=== PATIENT | male | born 1955 | race Caucasian/White ===

== ENCOUNTER 2023-03-13 19:12 | Emergency (ER) | payer MEDICARE, SELFPAY ==
[2023-03-13 19:13] VITALS: BP 146/74; PULSE 52; RESP 16; TEMP 36.6; O2SAT 100; BMI 21.0
--- NOTE | 2023-03-13 19:18 | EKG12_ITS ---
Test Reason : CP Blood Pressure : / mmHG Vent. Rate : 054 BPM Atrial Rate : 054 BPM P-R Int : 222 ms QRS Dur : 114 ms QT Int : 460 ms P-R-T Axes : 079 095 061 degrees QTc Int : 436 ms Sinus bradycardia with 1st degree A-V block Rightward axis Borderline ECG Confirmed by SANTOS DANIEL ([id number]), industrial editor SAMANTHA BROWN ([id number]) on 03/16/2023 7:34:49 AM Referred By: ESE Confirmed By:SANTOS DANIEL
[2023-03-13 19:42] LABS: Absolute Lymphocyte Count 2.39 X10^3/uL (0.83-4.51); Absolute Neutrophil Count 5.6 X10^3/uL (2.0-7.7); Basophil# 0.07 X10^3/uL; Basophil% 0.8 % (0-1); Eosinophil# 0.42 X10^3/uL; Eosinophils% 4.6 % (0-5); Hematocrit 43.7 % (40-54); Hemoglobin 14.3 g/dL (13.0-16.5); Lymphocyte # 2.39 X10^3/ul (0.83-4.51); Lymphocyte % 26.1 % (19-41); Mean Corp Hgb Conc 32.7 g/dL (32-36); Mean Corpuscular Volume 88.6 fL (80-94); Monocyte# 0.67 X10^3/uL; Monocyte% 7.3 % (0-10); NRBC Flagged by Analyzer 0 % (0-5); Neutrophil # 5.59 X10^3/uL (2.7-7.7); POSITIVE MORPHOLOGY YES; Platelet Count 128 K/mm3 (150-450); RBC Distribution Width CV 12.9 % (11.6-14.6); Red Blood Count 4.93 M/mm3 (4.6-6.2); White Blood Count 9.2 K/mm3 (4.4-11.0)
--- NOTE | 2023-03-13 19:47 | EX.ED.DYSGE1 ---
HPI <IKM Patel - Last Filed: 03/13/23 21:58> History of Present Illness Chief Complaint: Chest Pain Narrative Narrative: Patient is a 67-year-old male with history of CAD, cardiac bypass April 2022. Patient presents to the emergency department for a period of midsternal chest discomfort, chest burning. Patient is from [place], and drove up today. Patient states that his diet has been abnormal secondary to his travel last 2 weeks. Patient denies any chest pain with exertion. Patient cardiac issues was ruled out genetic, patient is very active, he is a cyclist. Patient on my initial evaluation had no pain. Patient did speak with his who was concerned. He denies any recent cough, fever, chills. PFSH <KIM Patel - Last Filed: 03/13/23 21:58> PFSH Allergy/AdvReac Type Severity Reaction Status Date / Time No Known Allergies Allergy Verified 03/13/23 19:15 Social History Smoking Status: Never smoker ROS <KIM Patel - Last Filed: 03/13/23 21:58> ROS ED ROS Narrative Constitutional: Negative for fever, chills, weight loss, weakness Eyes: Negative for vision loss, vision change, double vision ENT: Negative for any sore throat, ear pain, congestion Cardiovascular: Negative for any tightness, palpitations. Positive for chest discomfort, chest burning Respiratory: Negative for any cough, sputum production, hemoptysis, dyspnea, dyspnea on exertion, orthopnea Gastrointestinal: Negative for any abdominal pain, nausea, vomiting, diarrhea, constipation, blood in stool, blood in vomit : Negative for any urinary frequency, dysuria, retention, blood in urine Muscle skeletal: Negative for any muscle joint pain, stiffness, myalgias, arthralgias, neck pain, back pain Neurological: Negative for any headache, syncope, numbness or tingling, dizziness Skin: Negative for any rashes, lumps, itching, abrasions, lacerations Psychiatric: Negative for any depression, anxiety, stress, suicidal ideation, homicidal ideation Hematologic: Negative for any easy bruising, excessive bruising, easy bleeding Allergies: Negative for any eczema, hives, rash EXAM <KIM Patel - Last Filed: 03/13/23 21:58> Physical Exam Narrative Exam Narrative: Vital signs reviewed. HEET: Head normocephalic atraumatic, TMs clear bilaterally. Posterior pharynx is clear, moist mucous membranes. Nares clear bilaterally. Neck: Supple with no lymphadenopathy or tenderness. No signs of meningismus, negative jolt sign. Cardiac: Regular rate and rhythm no murmurs gallops or rubs, equal peripheral pulses bilaterally. Respiratory: Lungs clear to auscultation bilaterally. No chest tenderness. Abdomen: Soft, nontender, nondistended. No abdominal bruit or pulsatile masses. No hepatosplenomegaly Extremities: No peripheral edema, no signs of gross trauma or deformity. Active full range of motion of all extremities. Neuro: Cranial nerves II through XII intact, no focal neurological deficits. Skin: Clean dry and intact with no rash, purpura, petechiae, vesicles or pustules. Backs/flank: No CVA tenderness, no midline spinal tenderness, no deformity. Psych: Normal mood and affect. No SI, HI or acute psychosis. Const Vital Signs: 03/13/23 19:13 03/13/23 21:13 03/13/23 21:13 Temperature 98 F Temperature Source Temporal Pulse Rate 52 L 51 L Respiratory Rate 16 18 Respiratory Effort Blood Pressure 146/74 H 130/73 H Blood Pressure Mean 98 92 Pulse Ox 100 98 Oxygen Delivery Method Room Air Room Air Room Air 03/13/23 21:13 Temperature Temperature Source Pulse Rate Respiratory Rate Respiratory Effort Normal Non-Labored Blood Pressure Blood Pressure Mean Pulse Ox Oxygen Delivery Method <Dr. Jeremie Lovell MD - Last Filed: 03/15/23 08:21> Physical Exam Const Vital Signs: 03/13/23 19:13 03/13/23 21:13 03/13/23 21:13 Temperature 98 F Temperature Source Temporal Pulse Rate 52 L 51 L Respiratory Rate 16 18 Respiratory Effort Blood Pressure 146/74 H 130/73 H Blood Pressure Mean 98 92 Pulse Ox 100 98 Oxygen Delivery Method Room Air Room Air Room Air 03/13/23 21:13 Temperature Temperature Source Pulse Rate Respiratory Rate Respiratory Effort Normal Non-Labored Blood Pressure Blood Pressure Mean Pulse Ox Oxygen Delivery Method <Dr. Rebeca Farrell DO - Last Filed: 03/13/23 23:11> Physical Exam Const Vital Signs: 03/13/23 19:13 03/13/23 21:13 03/13/23 21:13 Temperature 98 F Temperature Source Temporal Pulse Rate 52 L 51 L Respiratory Rate 16 18 Respiratory Effort Blood Pressure 146/74 H 130/73 H Blood Pressure Mean 98 92 Pulse Ox 100 98 Oxygen Delivery Method Room Air Room Air Room Air 03/13/23 21:13 Temperature Temperature Source Pulse Rate Respiratory Rate Respiratory Effort Normal Non-Labored Blood Pressure Blood Pressure Mean Pulse Ox Oxygen Delivery Method MDM <Kodak PersaudLIZ stone-C - Last Filed: 03/13/23 21:58> MDM Lab Data Labs: Laboratory Results - last 24 hr 03/13/23 03/13/23 03/13/23 19:30 19:30 19:30 WBC 9.2 RBC 4.93 Hgb 14.3 Hct 43.7 MCV 88.6 MCH 29.0 MCHC 32.7 RDW Std Deviation 42.0 RDW Coeff of Deneen 12.9 Plt Count 128 L MPV 13.0 H Immature Gran % (Auto) 0.200 Neut % (Auto) 61.0 Lymph % (Auto) 26.1 Ida % (Auto) 7.3 Eos % (Auto) 4.6 Baso % (Auto) 0.8 Absolute Neuts (auto) 5.6 Absolute Lymphs (auto) 2.39 Nucleated RBC % 0 Differential Comment SCANNED PT 14.4 INR 1.2 Sodium 140 Potassium 3.9 Chloride 109 H Carbon Dioxide 28.0 Anion Gap 3 L BUN 18 Creatinine 1.01 Estim Creat Clear Calc 68.73 Est GFR (MDRD) Af Amer 94 Est GFR (MDRD) Non-Af 78 BUN/Creatinine Ratio 17.8 Glucose 111 H Calcium 9.6 Troponin I High Sens 9 03/13/23 22:00 WBC RBC Hgb Hct MCV MCH MCHC RDW Std Deviation RDW Coeff of Deneen Plt Count MPV Immature Gran % (Auto) Neut % (Auto) Lymph % (Auto) Ida % (Auto) Eos % (Auto) Baso % (Auto) Absolute Neuts (auto) Absolute Lymphs (auto) Nucleated RBC % Differential Comment PT INR Sodium Potassium Chloride Carbon Dioxide Anion Gap BUN Creatinine Estim Creat Clear Calc Est GFR (MDRD) Af Amer Est GFR (MDRD) Non-Af BUN/Creatinine Ratio Glucose Calcium Troponin I High Sens 9 Radiography Diagnostic Testing: Clinical Impression(s) from Imaging Studies Chest X-Ray 03/13/23 19:50 IMPRESSION: No active disease. Electronically Signed: Gorge Jaeger MD at 20:09 EDT , EKG Sinus bradycardia: Attestation: I personally reviewed and interpreted this EKG as follows: Comments: Sinus bradycardia with first-degree AV block, rate of 54 bpm, LA interval 222 ms, QRS duration 14 ms, no acute ST elevation, no acute infarct noted. Treatment and Re-Evaluation :: Patient appears generally well, patient appears nontoxic, vital signs are stable. Patient presents to the emergency department for midsternal chest burning, slight pressure and secondary to his history of quadruple bypass in April 2022 he was concerned. Patient is from out of town, he did drive here arriving today from [place]. Patient did receive a full cardiac work-up secondary to his history, patient's chest x-ray was unremarkable. Patient's laboratory studies show a normal CBC, PT/INR is within normal limits, patient's chemistries were unremarkable initial troponin was 9. Secondary to the proximity of the chest pain to the patient's arrival to the emergency department, the patient will receive a second troponin. However at this time there is no evidence of any ACS, TN. Patient's EKG was unremarkable. Patient received a second troponin which was negative. At this time, differential diagnosis includes ACS, TN, pulmonary embolus. Test to consider with CTA however there is minimal evidence suspect any pulmonary embolus. Patient is feeling better, is in no discomfort. Vital signs are stable. We used shared decision-making, I do believe the patient is stable for discharge. The patient will be able to follow-up outpatient. At this time, patient, the patient's are happy with the plan of care, given return precaution. Patient stable for discharge. <Dr. Jeremie Lovell MD - Last Filed: 03/15/23 08:21> [facility] Narrative Medical decision making narrative: I have personally performed a face to face assessment of the patient and have reviewed the MELONY Note. I performed a substantive portion of the visit including all aspects of the following. My rodrigez findings include: History is remarkable for 5 vessel bypass surgery April 2022. Patient does have history of hypertension. He has had fleeting episodes of chest pain that is right and left parasternal region. He also since 6 PM has had a burning sensation and was similar to the pain he had prior to his TN and 5 vessel bypass surgery. He denies any associated symptoms, radiation or alleviating or exacerbating symptoms. Patient did have a croissant with coffee at 3 PM. He does have a history of GERD. He denies leg pain, swelling discoloration. He denies any infectious symptoms. He has no history of VTE. He is an avid cyclist. He and his drove from the [place]. Exam is patient appears no distress. Patient is bradycardic. Blood pressure slightly elevated. He is a thin gentleman. HEENT exam is unremarkable heart is slow and regular without murmur, gallop or rub. Lungs are clear to auscultation with symmetric breath sounds. Abdomen is soft nontender. Lower extremity exam is no swelling, discoloration, ligamentous tension, palp cords since on the distribution deep venous system. Medical Decision Making differential diagnosis would be GERD to the that he had a croissant and coffee 3 hours before the onset of the burning sensation versus cardiac. Will obtain EKG with troponin and 2-hour troponin. We will also treat with GI cocktail. Appropriate blood work was obtained to assess patient's presentation. Chest x-ray was obtained to see if there is evidence of a hiatal hernia or any pulmonary cause that could explain his symptoms. Other additions or changes: 2-hour troponin is pending. Case will be discussed with evening physician to make disposition pending 2-hour troponin. Lab Data Attestation: I reviewed the patient's lab results. Lab results narrative: White count differential normal. Coags normal. Blood work normal. First troponin is normal at 9. Labs: Laboratory Results - last 24 hr 03/13/23 03/13/23 03/13/23 19:30 19:30 19:30 WBC 9.2 RBC 4.93 Hgb 14.3 Hct 43.7 MCV 88.6 MCH 29.0 MCHC 32.7 RDW Std Deviation 42.0 RDW Coeff of Deneen 12.9 Plt Count 128 L MPV 13.0 H Immature Gran % (Auto) 0.200 Neut % (Auto) 61.0 Lymph % (Auto) 26.1 Ida % (Auto) 7.3 Eos % (Auto) 4.6 Baso % (Auto) 0.8 Absolute Neuts (auto) 5.6 Absolute Lymphs (auto) 2.39 Nucleated RBC % 0 Differential Comment SCANNED PT 14.4 INR 1.2 Sodium 140 Potassium 3.9 Chloride 109 H Carbon Dioxide 28.0 Anion Gap 3 L BUN 18 Creatinine 1.01 Estim Creat Clear Calc 68.73 Est GFR (MDRD) Af Amer 94 Est GFR (MDRD) Non-Af 78 BUN/Creatinine Ratio 17.8 Glucose 111 H Calcium 9.6 Troponin I High Sens 9 03/13/23 22:00 WBC RBC Hgb Hct MCV MCH MCHC RDW Std Deviation RDW Coeff of Deneen Plt Count MPV Immature Gran % (Auto) Neut % (Auto) Lymph % (Auto) Ida % (Auto) Eos % (Auto) Baso % (Auto) Absolute Neuts (auto) Absolute Lymphs (auto) Nucleated RBC % Differential Comment PT INR Sodium Potassium Chloride Carbon Dioxide Anion Gap BUN Creatinine Estim Creat Clear Calc Est GFR (MDRD) Af Amer Est GFR (MDRD) Non-Af BUN/Creatinine Ratio Glucose Calcium Troponin I High Sens 9 Radiography Chest X-Ray - ED: 1 View and Read by ED Physician (There is no active disease. Media sternotomy wires noted. There is a metallic device noted left perihilar region. Uncertain what this may represent. Cardiac silhouette and size normal. Lung parenchyma normal. No evidence of effusion or heart failure. Osseous structures are unremarkable. This) Diagnostic Testing: Clinical Impression(s) from Imaging Studies Chest X-Ray 03/13/23 19:50 IMPRESSION: No active disease. Electronically Signed: Gorge Jaeger MD at 20:09 EDT , EKG Sinus bradycardia: Interpretation: Sinus Rhythm (Sinus bradycardia rate of 54 with first-degree AV block. LA interval 222 ms per cures duration 114 ms. QT duration 460 ms. [place] to the right. There is no acute ischemic changes noted.) <Dr. Rebeca Farrell, DO - Last Filed: 03/13/23 23:11> MDM MDM Narrative Medical decision making narrative: I have personally performed a face to face assessment of the patient and have reviewed the MELONY Note. I performed a substantive portion of the visit including all aspects of the following. My rodrigez findings include: History is remarkable for 5 vessel bypass surgery April 2022. Patient does have history of hypertension. He has had fleeting episodes of chest pain that is right and left parasternal region. He also since 6 PM has had a burning sensation and was similar to the pain he had prior to his [place] and 5 vessel bypass surgery. He denies any associated symptoms, radiation or alleviating or exacerbating symptoms. Patient did have a croissant with coffee at 3 PM. He does have a history of GERD. He denies leg pain, swelling discoloration. He denies any infectious symptoms. He has no history of VTE. He is an avid cyclist. He and his drove from the [facility]. Exam is patient appears no distress. Patient is bradycardic. Blood pressure slightly elevated. He is a thin gentleman. HEENT exam is unremarkable heart is slow and regular without murmur, gallop or rub. Lungs are clear to auscultation with symmetric breath sounds. Abdomen is soft nontender. Lower extremity exam is no swelling, discoloration, ligamentous tension, palp cords since on the distribution deep venous system. Medical Decision Making differential diagnosis would be GERD to the that he had a croissant and coffee 3 hours before the onset of the burning sensation versus cardiac. Will obtain EKG with troponin and 2-hour troponin. We will also treat with GI cocktail. Appropriate blood work was obtained to assess patient's presentation. Chest x-ray was obtained to see if there is evidence of a hiatal hernia or any pulmonary cause that could explain his symptoms. Other additions or changes: 2-hour troponin is pending. Case will be discussed with evening physician to make disposition pending 2-hour troponin. Case signed out to me pending delta troponin. Delta troponin is still 9. Patient is asymptomatic. Patient is discharged home with outpatient follow-up. Lab Data Labs: Laboratory Results - last 24 hr 03/13/23 03/13/23 03/13/23 19:30 19:30 19:30 WBC 9.2 RBC 4.93 Hgb 14.3 Hct 43.7 MCV 88.6 MCH 29.0 MCHC 32.7 RDW Std Deviation 42.0 RDW Coeff of Deneen 12.9 Plt Count 128 L MPV 13.0 H Immature Gran % (Auto) 0.200 Neut % (Auto) 61.0 Lymph % (Auto) 26.1 Ida % (Auto) 7.3 Eos % (Auto) 4.6 Baso % (Auto) 0.8 Absolute Neuts (auto) 5.6 Absolute Lymphs (auto) 2.39 Nucleated RBC % 0 Differential Comment SCANNED PT 14.4 INR 1.2 Sodium 140 Potassium 3.9 Chloride 109 H Carbon Dioxide 28.0 Anion Gap 3 L BUN 18 Creatinine 1.01 Estim Creat Clear Calc 68.73 Est GFR (MDRD) Af Amer 94 Est GFR (MDRD) Non-Af 78 BUN/Creatinine Ratio 17.8 Glucose 111 H Calcium 9.6 Troponin I High Sens 9 03/13/23 22:00 WBC RBC Hgb Hct MCV MCH MCHC RDW Std Deviation RDW Coeff of Deneen Plt Count MPV Immature Gran % (Auto) Neut % (Auto) Lymph % (Auto) Ida % (Auto) Eos % (Auto) Baso % (Auto) Absolute Neuts (auto) Absolute Lymphs (auto) Nucleated RBC % Differential Comment PT INR Sodium Potassium Chloride Carbon Dioxide Anion Gap BUN Creatinine Estim Creat Clear Calc Est GFR (MDRD) Af Amer Est GFR (MDRD) Non-Af BUN/Creatinine Ratio Glucose Calcium Troponin I High Sens 9 Radiography Diagnostic Testing: Clinical Impression(s) from Imaging Studies Chest X-Ray 03/13/23 19:50 IMPRESSION: No active disease. Electronically Signed: Gorge Jaeger MD at 20:09 EDT , Discharge Plan Triage Chief Complaint: Chest Pain ED Midlevel Provider: [employer] ED Provider: Jeremie Lovell Dx/Rx/DC Orders Clinical Impression: Heart palpitations, Acute epigastric pain Instructions: ED Palpitations, ED Epigastric Pain Uncertain Cause Primary Care Provider: [facility] Doctor,Out of Referrals: [facility] Doctor,Out of [Primary Care Provider] - Activity Restrictions/Additional Instructions: Please follow-up. Please return for any worsening symptoms Disposition Disposition: Home, Self Care Discharge Date/Time: 03/13/23 23:12
--- NOTE | 2023-03-13 19:50 | RAD_ITS ---
STUDY: X-RAY CHEST REASON FOR EXAM: Male, 67 years old. chest pain TECHNIQUE: Single AP portable view of the chest. COMPARISON: None. FINDINGS: Status post median sternotomy with a left atrial appendage closure device. The lungs are clear and expanded. There is no demonstrated pleural abnormality. Normal size heart. Normal mediastinum and geovanni. Normal visualized pulmonary arteries. Normal visualized aortic arch and descending thoracic aorta. Normal visualized thoracic spine. Normal visualized ribs, clavicles, and shoulders. There is no demonstrated abnormality of the visualized soft tissue structures of the upper abdomen. RAD/Chest 1 View (Portable) IMPRESSION: No active disease. Electronically Signed: Gorge Jaeger MD at 20:09 EDT ,
[2023-03-13 19:51] LABS: International Normalized Ratio 1.2; Prothrombin Time (Protime)PT. 14.4 SECONDS (11.7-14.9)
[2023-03-13 19:57] LABS: Anion Gap 3 (5-15); BUN 18 mg/dL (7-18); BUN/Creat Ratio 17.8 RATIO (10-20); Calcium,Total 9.6 mg/dL (8.5-10.1); Chloride 109 mmol/L (98-107); Creatinine, Serum 1.01 mg/dL (0.70-1.30); EST Glomerular Filtration Rate 78 mL/min (>60); Est Glom Filt Rate - Afr Amer 94 mL/min (>60); Estimated Creatinine Clearance 68.73 ml/min; Glucose 111 mg/dL (74-106); Potassium 3.9 mmol/L (3.5-5.1); Sodium Level 140 mmol/L (136-145); Troponin-I HS (w/2H Reflex) 9 pg/mL (3.0-78.0)
[2023-03-13 19:59] LABS: Differential Indicated SCAN CRITERIA MET
[2023-03-13 20:47] LABS: Differential Comment SCANNED
[2023-03-13] MEDS: Mag Hydrox/Al Hydrox/Simeth 30 ML UDC PO (21:01)
[2023-03-13 21:13] VITALS: BP 130/73; PULSE 51; RESP 18; O2SAT 98
[2023-03-13 22:36] LABS: Troponin-I HS 9 pg/mL (3.0-78.0)
[2023-03-13 23:11] VITALS: BP 113/68; PULSE 51; RESP 16; O2SAT 100
== END 2023-03-13 23:12 | disposition home or self-care (01) ==
PROVIDERS: Emergency Provider Emergency Medicine; Visit Provider Emergency Medicine
DX: R07.9 Chest pain, unspecified (principal); I10 Essential (primary) hypertension; R00.2 Palpitations; R10.13 Epigastric pain
CPT/HCPCS: 71045; 80048; 84484; 85025; 85610; 93005; 99284